=== PATIENT | female | born 1980 | race Caucasian/White ===

== ENCOUNTER 2017-02-01 17:33 | Emergency (ER) | payer BC ==
[~2017-02-01] VITALS: Ht 152.4 cm; Wt 80.7 kg
[2017-02-01] MEDS ORDERED: NACL 0.9% 1,000 ML IV ONE (17:34)
[2017-02-01 17:36] VITALS: BP 120/88; PULSE 77; RESP 18; O2SAT 98
--- NOTE | 2017-02-01 17:39 | NUR ---
Patient to ER bed 05to gown for evaluation. Side rails up. Report given to John Paul
[2017-02-01] MEDS ORDERED: KETOROLAC TROMETHAMINE 30 MG VIAL IVP ONE (17:45)
[2017-02-01] MEDS ORDERED: MORPHINE 2 MG/ML INJ. SYRINGE IVP ONE (17:45)
[2017-02-01] MEDS ORDERED: ONDANSETRON HCL 4 MG/2 ML VIAL IVP ONE (17:45)
--- NOTE | 2017-02-01 17:45 | NUR ---
ER at bedside examining patient.
--- NOTE | 2017-02-01 17:50 | NUR ---
PT PRESENTS TO ED C/O RLQ ABD X 3 DAYS.PT H/O MIGRAINE,NO OTHER SIGNIFICANT MED HX.PT REPORTS DIARRHEA X 1 TODAY AND MILD NAUSEA. IV EST 20G.BLOOD DRAWN.
--- NOTE | 2017-02-01 18:00 | NUR ---
Patient transported to radiology via WHEELCHAIR, accompanied by RAD STAFF.
[2017-02-01 18:02] LABS: BASOPHILS % (AUTO) 0.4 % (0.0-2.0); EOSINOPHILS # (AUTO) 0.3 K/uL (0.0-0.4); EOSINOPHILS % (AUTO) 4.4 % (0.0-4.0); HEMATOCRIT 37.6 % (36-48); HEMOGLOBIN 12.5 g/dL (12.0-16.0); LYMPHOCYTES # (AUTO) 1.8 K/uL (1.0-5.5); LYMPHOCYTES % (AUTO) 23.4 % (20.5-51.5); MEAN CORPUSCULAR HEMOGLOBIN 28 pg (27-31); MEAN CORPUSCULAR HGB CONC 33 % (32-36); MEAN CORPUSCULAR VOLUME 83 fL (79.0-98.0); MONOCYTES # (AUTO) 0.4 K/uL (0.0-1.0); MONOCYTES % (AUTO) 5.7 % (1.7-9.3); NEUTROPHILS # (AUTO) 5.3 K/uL (1.8-7.7); NEUTROPHILS % (AUTO) 66.1 % (40.0-70.0); PLATELET COUNT (AUTO) 196 K/uL (130-430); RED BLOOD CELL COUNT(AUTO) 4.51 MIL/uL (4.2-6.2); RED CELL DISTRIBUTION WIDTH 13.1 % (9.0-15.0); WHITE BLOOD COUNT (AUTO) 7.8 K/uL (4.8-10.8)
[2017-02-01 18:08] LABS: BILIRUBIN,URINE NEGATIVE (NEGATIVE); BLOOD, URINE 3+ (NEGATIVE); CLARITY/URINE HAZY (CLEAR); COLOR,URINE RED (YELLOW); GLUCOSE,URINE NEGATIVE (NEGATIVE); KETONES,URINE NEGATIVE (NEGATIVE); LEUKOCYTE ESTERASE ,URINE NEGATIVE (NEGATIVE); NITRITE, URINE NEGATIVE (NEGATIVE); PROTEIN URINE 1+ (NEGATIVE); UROBILINOGEN,URINE 0.2 (0.2-1.0)
[2017-02-01 18:10] LABS: PROTHROMBIN TIME 10.7 SECS (9.5-12.5)
--- NOTE | 2017-02-01 18:10 | NUR ---
PT RETURNED FROM RAD DEPT.
[2017-02-01 18:19] LABS: CALCIUM 8.6 mg/dL (8.4-11.0); CREATININE 0.99 mg/dL (0.55-1.30); POTASSIUM 3.6 mmol/L (3.5-5.1)
[2017-02-01 18:21] LABS: BACTERIA,URINE FEW /HPF (None Seen); MUCUS,URINE None Seen /LPF (None Seen); RBC,URINE >100 /HPF (0-3); WBC,URINE 0-3 /HPF (0-3)
[2017-02-01 18:24] LABS: ALBUMIN 3.7 g/dL (3.4-4.8); TOTAL BILIRUBIN 0.4 mg/dL (0.0-1.0); TOTAL PROTEIN, SERUM 7.5 g/dL (6.4-8.3)
--- NOTE | 2017-02-01 18:30 | NUR ---
PT REPORTS PAIN SOLVING.
--- NOTE | 2017-02-01 18:55 | NUR ---
AT BEDSIDE DISCUSSING PT FINDINGS.
[2017-02-01 19:34] VITALS: BP 126/78; PULSE 60; RESP 16; O2SAT 98
--- NOTE | 2017-02-01 19:34 | NUR ---
Patient given written and verbal discharge instructions and verbalizes understanding. ER MD discussed with patient the results and treatment provided. Given copies of tests performed in ER. Patient in stable condition. ID arm band removed. IV catheter removed intact and dressing applied, no active bleeding. Rx of ibuprophen 600mg three time a day given. Patient educated on pain management and to follow up with PMD. Pain Scale 0/10 at the time. Opportunity for questions provided and answered.
== END 2017-02-01 19:34 | disposition home or self-care (01) ==
LOC: SED 17:33
DX: N83.202 Unspecified ovarian cyst, left side (principal); N83.201 Unspecified ovarian cyst, right side; R19.7 Diarrhea, unspecified
CPT/HCPCS: 36415; 74176; 76830; 76857; 80053; 81000; 81025; 82150; 83605; 83690; 85025; 85610; 85730; 87040; 93005; 96361; 96374; 96375; 99285; J1885; J2270; J2405; J7030